=== PATIENT | male | born 1995 | race Caucasian/White ===

== ENCOUNTER 2016-10-27 11:59 | Emergency (ER) | payer OTHER ==
[~2016-10-27] VITALS: Ht 167.6 cm; Wt 65.0 kg
[2016-10-27] MEDS ORDERED: SOD CHLORIDE 0.9% 1,000 ML IV STA (12:11)
[2016-10-27 12:14] VITALS: Ht 167.6 cm; Wt 65.0 kg
[2016-10-27] MEDS ORDERED: LORAZEPAM 2 MG INJ IV ONE ×2 (12:30→15:30)
[2016-10-27] MEDS: PEG/ELECTROLYTES 4L BTL PO ONE ×2 (12:38→13:59)
[2016-10-27 12:58] LABS: BASOPHILS % 0.5 % (0.0-2.0); EOSINOPHILS # 0.3 10^3/ul (0.0-0.5); HEMATOCRIT 42.1 % (42.0-52.0); HEMOGLOBIN 14.6 g/dl (14.0-18.0); LYMPHOCYTES # 1.7 10^3/ul (0.8-2.9); LYMPHOCYTES % 19.7 % (18.0-55.0); MEAN CORPUSCULAR HEMOGLOBIN 31.4 pg (29.0-33.0); MEAN CORPUSCULAR HGB CONC 34.6 g/dl (32.0-37.0); MEAN CORPUSCULAR VOLUME 90.6 fl (72.0-104.0); MEAN PLATELET VOLUME 7.7 fl (7.4-10.4); MONOCYTE # 1.1 10^3/ul (0.3-0.9); MONOCYTES % 12.7 % (0.0-13.0); NEUTROPHIL # 5.7 10^3/ul (1.6-7.5); NEUTROPHILS % 64.1 % (30.0-74.0); PLATELET COUNT 236 10^3/UL (140-440); RED BLOOD COUNT 4.65 10^6/ul (4.70-6.10); RED CELL DISTRIBUTION WIDTH 13.3 % (11.5-14.5); UNCORRECTED WBC 8.9 10^3/ul (4.8-10.8); WHITE BLOOD COUNT 8.9 10^3/ul (4.8-10.8)
[2016-10-27 13:05] LABS: CONDITION 1
[2016-10-27 13:07] LABS: ALBUMIN 4.8 g/dl (3.3-4.9); INR 1.03; PROTIME 13.5 Sec (12.2-14.2); PT RATIO 1.1
[2016-10-27 13:08] LABS: CHLORIDE 103 mmol/L (97-110); POTASSIUM 3.6 mmol/L (3.5-5.1); SODIUM 146 mmol/L (135-144)
[2016-10-27 13:10] LABS: ANION GAP 19 (8-16); ASPARTATE AMINO TRANSFERASE 46 IU/L (15-46); BILIRUBIN,INDIRECT 0.8 mg/dl (0-1.1); BILIRUBIN,TOTAL 0.8 mg/dl (0.2-1.3); CARBON DIOXIDE 28 mmol/L (21-31); CREATININE 0.77 mg/dl (0.61-1.24)
[2016-10-27 13:11] LABS: ALANINE AMINOTRANSFERASE 39 IU/L (13-69); ALBUMIN/GLOBULIN RATIO 1.14; ALKALINE PHOSPHATASE 87 IU/L (42-121); BLOOD UREA NITROGEN 21 mg/dl (7-20); CALCIUM 9.5 mg/dl (8.4-10.2); GLUCOSE 95 mg/dl (70-220)
[2016-10-27 13:25] LABS: TROPONIN-I < 0.012 ng/ml (0.00-0.12)
[2016-10-27] MEDS ORDERED: ETOMIDATE 20 MG INJ IV ONE (13:30)
--- NOTE | 2016-10-27 13:33 | RADRPT ---
PROCEDURE: Chest Radiograph. CLINICAL INDICATION: Chest pain. Abdominal pain. TECHNIQUE: Single frontal chest radiograph. COMPARISON: None available FINDINGS: The cardiomediastinal silhouette is within normal limits. There is a 1.1 cm nodular opacity in the right lung base which is nonspecific, and likely represent a true nodule in a 20-year-old male. The lungs are otherwise clear. No infiltrate or effusion is seen. The bones are intact. IMPRESSION: 1. No evidence of acute cardiopulmonary disease. 2. 1.1 cm nodular opacity in the right lung base. Recommend short interval follow-up to exclude tr ue nodule. RPTAT: KK .Isidro Doherty MD, Date Time Electronically viewed and signed by .Isidro Doherty MD, MD on 10/27/2016 13:33 .B/
--- NOTE | 2016-10-27 13:35 | RADRPT ---
PROCEDURE: Abdomen radiograph CLINICAL INDICATION: Rectal foreign body. Abdominal pain. TECHNIQUE: Single view of the abdomen. COMPARISON: None. FINDINGS: There is a nonspecific bowel gas pattern. There is no evidence of large or small bowel obstruction. There is a subtle linear hyperdensity overlying the right rebeca pelvis and extending centrally in th e superior fashion. There may be a hyperdense and more centrally. There is no other evidence of ra diopaque foreign body. There are no abnormal calcifications overlying the urinary tracts. The bones are intact. IMPRESSION: 1. Subtle linear hyperdensity overlying the right rebeca pelvis which may represent reported rectal f oreign body. No definitive radiopaque foreign bodies identified. Consider CT scan for further eval uation if clinically indicated 2. Otherwise unremarkable abdominal plain film series.. RPTAT: KK .Isidro Doherty MD, Date Time Electronically viewed and signed by .Isidro Doherty MD, on 10/27/2016 13:35 .B/
--- NOTE | 2016-10-27 17:58 | RADRPT ---
PROCEDURE: CT of the abdomen and pelvis without contrast CLINICAL INDICATION: Rectal foreign body. Evaluate for retained foreign body after bowel movement .. TECHNIQUE: Spiral CT images through the abdomen and pelvis without the use of contrast. The admin istered radiation dose is CTDI 14.64 and DLP 854.45. One or more of the following dose reduction te chniques were used: automated exposure control, adjustment of the mA and/or kV according to patient size, or use of iterative reconstruction technique. COMPARISON: KUB from earlier today FINDINGS: Lack of oral and intravenous contrast somewhat limits evaluation. Slight dependent atelectasis of the lung bases is seen. No pleural effusion is seen. Calcified right lung base granuloma is seen. There is a 2.2 x 2.9 cm low attenuation lesion in the left lobe of the liver lateral to the falcifo rm ligament with a small area of hyperdensity within. No other liver lesions are seen. Noncontrast imaging of the spleen, adrenals, kidneys, and pancreas is unremarkable.. . There is no evidence for bowel obstruction, free air, or abscess. The appendix is normal in appearance. fluid is seen throughout the colon. No definite visualize rectal foreign body is seen. No perirectal fl uid collection or mass is seen. The bladder and prostate are unremarkable in appearance. The linear density seen on the KUB is not seen and may have an outside the patient or may have been expelled. No bony abnormality is seen.. IMPRESSION: No visualized rectal foreign body. No perirectal fluid collection. Low attenuation lesion in the liver. This may be an area of focal fat but there is slight hyperdens ity within. Elective follow-up MRI may be helpful. RPTAT: HLBE Physician Promise Date Time Electronically viewed and signed by Physician Promise on 10/27/2016 17:58 MEKA/
--- NOTE | 2016-10-27 18:06 | ERD ---
ER Documentation Chief Complaint Date/Time DATE: 10/27/16 TIME: 18:03 Chief Complaint BIB [facility] FOR EVAL OF METH USE. [employer] AT BEDSIDE. HPI 20-year-old man brought in by EMS under police custody for methamphetamine abuse and intoxication, he was in [facility] longterm and was seen inserting a bag of drugs (suspect methamphetamine?) Into his rectum. [employer] officers called 911 and requested transport for concern of intoxication, although patient already had signs and symptoms of acute methamphetamine intoxication including agitation and combative behavior. Patient admits to using drugs including methamphetamine. Patient has had no vomiting or diarrhea, no complaints of headache or blurry vision, no chest pain or shortness of breath. Patient denied suicidal homicidal ideation. Patient was transported here without further complications in handcuffs ROS All systems reviewed and are negative except as per history of present illness. Medications Home Meds Unable to Obtain Active Prescriptions or Reported Meds Allergies Allergies: Coded Allergies: Unknown: Unable to obtain (Unverified , 10/27/16) PMhx/Soc Medical and Surgical Hx: pt denies Medical Hx, pt denies Surgical Hx Hx Alcohol Use: Yes (DAILY) Hx Substance Use: Yes (CRYSTAL METH, HEROIN) Hx Tobacco Use: Yes Smoking Status: Current every day smoker FmHx Family History: No diabetes Physical Exam Vitals Vital Signs Date Time Temp Pulse Resp B/P Pulse Ox O2 Delivery O2 Flow Rate FiO2 10/27/16 18:20 98.6 65 18 125/69 100 Room Air 10/27/16 13:00 98.5 74 20 145/77 100 10/27/16 12:50 98.5 78 18 143/75 98 10/27/16 12:35 98.4 88 18 144/75 100 10/27/16 12:20 98.3 100 20 142/74 100 10/27/16 12:20 98.3 100 20 142/74 100 Room Air 10/27/16 12:14 98.1 93 18 158/96 98 Physical Exam GENERAL: Well-developed, well-nourished, agitated, combative HEENT: Moist mucous membranes, pink conjunctiva, no cervical spine tenderness or step-off deformities, no goiter, no jaundice or icterus, extraocular movements intact without pain. No submandibular induration, and no pharyngeal erythema NEURO: Alert and oriented 3, cranial nerves II through XII intact bilaterally, pupils equal round reactive to light, no focal deficits or facial asymmetry, sensation intact distally Strength 5/5 in upper and lower extremities bilaterally CARDIAC: Tachycardic and regular, no murmurs rubs or gallops LUNGS: Clear bilaterally no wheezing crackles or stridor ABDOMEN: Soft nontender, no guarding, no rigidity, no rebound, no psoas sign no obturator sign. Normoactive bowel sounds SKIN: Warm and dry to touch, no abrasions, contusions, or hematomas, no lacerations, no ecchymosis, no target lesions, and without ulcers EXTREMITIES: No clubbing cyanosis or edema, calves are bilaterally symmetrical, no Homans sign, no popliteal cord sign. Distal pulses equal and bilateral PSYCH: Agitated and combative Result Diagram: 10/27/16 1223 10/27/16 1223 Results 24 hrs Laboratory Tests Test 10/27/16 12:23 Alanine Aminotransferase (ALT/SGPT) 39IU/L Albumin 4.8g/dl Albumin/Globulin Ratio 1.14 Alkaline Phosphatase 87IU/L Anion Gap 19 Aspartate Amino Transf (AST/SGOT) 46IU/L Basophils # 0.010^3/ul Basophils % 0.5% Blood Urea Nitrogen 21mg/dl Calcium Level 9.5mg/dl Carbon Dioxide Level 28mmol/L Chloride Level 103mmol/L Creatinine 0.77mg/dl Direct Bilirubin 0.00mg/dl Eosinophils # 0.310^3/ul Eosinophils % 3.0% Globulin 4.20g/dl Glucose Level 95mg/dl Hematocrit 42.1% Hemoglobin 14.6g/dl INR International Normalized Ratio 1.03 Indirect Bilirubin 0.8mg/dl Lipase 37U/L Lymphocytes # 1.710^3/ul Lymphocytes % 19.7% Mean Corpuscular Hemoglobin 31.4pg Mean Corpuscular Hemoglobin Concent 34.6g/dl Mean Corpuscular Volume 90.6fl Mean Platelet Volume 7.7fl Monocytes # 1.110^3/ul Monocytes % 12.7% Neutrophils # 5.710^3/ul Neutrophils % 64.1% Nucleated Red Blood Cells # 0.010^3/ul Nucleated Red Blood Cells % 0.0/100WBC Platelet Count 96053^3/UL Potassium Level 3.6mmol/L Prothrombin Time 13.5Sec Prothrombin Time Ratio 1.1 Red Blood Count 4.6510^6/ul Red Cell Distribution Width 13.3% Sodium Level 146mmol/L Total Bilirubin 0.8mg/dl Total Protein 9.0g/dl Troponin I < 0.012ng/ml White Blood Count 8.910^3/ul Current Medications Medications (Trade) Dose Ordered Sig/Javi Route PRN Reason Start Time Stop Time Status Last Admin Dose Admin Sodium Chloride (NS) 1,000 ml @ 1,000 mls/hr Q1H STAT IV 10/27/16 12:11 10/27/16 13:10 DC 10/27/16 12:22 Lorazepam (Ativan) 2 mg ONCE ONCE IV 10/27/16 12:30 10/27/16 12:31 DC 10/27/16 12:22 Polyethylene Glycol/ Electrolytes (Golytely) 8,000 ml ONCE ONCE PO 10/27/16 13:00 10/27/16 13:01 DC 10/27/16 13:59 Etomidate (Amidate) 10 mg ONCE ONCE IV 10/27/16 13:30 10/27/16 13:31 DC Lorazepam (Ativan) 2 mg ONCE ONCE IV 10/27/16 15:30 10/27/16 15:31 DC 10/27/16 15:30 Procedures/MDM IV line was established patient was placed on surveillance monitor rhythm strip revealed a sinus tachycardia at 110 bpm with upright P and T waves. Patient was afebrile. EKG performed, read by me revealed a sinus tachycardia 108 bpm, normal axis, narrow QRS complex, no concerning ST elevations or depressions noted. There is EKG artifacts that do not affect this read. I administered 1 L normal saline intravenously and lorazepam 2 mg IV 2 for continued agitation and combative behavior. CBC was unremarkable, electrolytes revealed dehydration with a BUN/creatinine of 21/0.8, liver function tests are normal, troponin was negative. Chest X-ray 1V Interpreted by me: Soft Tissue: No acute abnormalities Bones: No acute abnormalities Mediastinum/Cardiac Silhouette/Lungs: No acute abnormalities Two-view x-ray of the abdomen was performed, read by me there is a foreign body noted by me in the rectum, no concerning air-fluid levels. NG tube was placed, as patient refused oral intake. Bowel cleansing is indicated at this time to remove a rectal foreign body which most likely contains dangerous, even lethal amounts of drugs that I suspect to be methamphetamine or cocaine. I administered 1 gallon of GoLYTELY via the NG tube without difficulty. After GoLYTELY administration patient had 2 large bowel movements, and suspicion is foreign body was expelled. CT scan of the abdomen and pelvis was performed after bowel movements, no foreign body was noted. Critical Care: Time: 40 minutes, this was time separate from other procedures. Treatments/Evaluations: Close monitoring and treatment of unstable vital signs, cardiorespiratory, and neurologic status, while maintaining tight balance of fluid, respiratory, and cardiac interventions. Differential diagnoses considered, included but not limited to acute coronary syndrome, pulmonary embolism, aortic dissection, abdominal aortic aneurysm, sepsis, stroke, meningitis, encephalitis, pneumonia, appendicitis, cholecystitis , bowel obstruction, pyelonephritis, nephrolithiasis, cystitis, as well as metabolic, hematologic, and electrolyte abnormalities. As well as abscess, cellulitis, fractures, and dislocations. Patient feels much better at this time, and vital signs are normal, symptoms have improved. I did give strict instructions to return to the ED if symptoms continue or worsen, patient will otherwise follow-up with primary care physician. Patient understood instructions and agreed to plan. He was discharged back to longterm, okay to book, and escorted back with [employer] officers. Departure Diagnosis: Primary Impression: Drug abuse Additional Impressions: Drug overdose Encounter type: initial encounter Injury intent: accidental or unintentional Qualified Code: T50.901A - Drug overdose, accidental or unintentional, initial encounter Rectal foreign body Encounter type: initial encounter Qualified Code: T18.5XXA - Rectal foreign body, initial encounter Condition: Good Patient Instructions: Understanding Methamphetamine Abuse and Addiction, Drug Abuse, [facility] Clearance, Overdose, Intentional (Adult), Rectal Foreign Body, Removed (Adult) JO-ANN PATRICK MD Oct 27, 2016 18:06
[2016-10-27 18:20] VITALS: BP 125/69; PULSE 65; RESP 18; TEMP 98.6
== END 2016-10-27 18:35 | disposition home or self-care (01) ==
LOC: E/R 11:59
DX: T43.621A Poisoning by amphetamines, accidental (unintentional), initial encounter (principal); R40.2252 Coma scale, best verbal response, oriented, at arrival to emergency department; F17.210 Nicotine dependence, cigarettes, uncomplicated; T18.5XXA Foreign body in anus and rectum, initial encounter; R07.9 Chest pain, unspecified; R40.2362 Coma scale, best motor response, obeys commands, at arrival to emergency department; R40.2142 Coma scale, eyes open, spontaneous, at arrival to emergency department; X58.XXXA Exposure to other specified factors, initial encounter; Y92.9 Unspecified place or not applicable
CPT/HCPCS: 36415; 71010; 74000; 74176; 80053; 83690; 84484; 85025; 85610; 93005; 96374; 96375; 99291; J2060; J7030